=== PATIENT | male | born 1965 | race Caucasian/White ===

== ENCOUNTER 2018-11-20 08:20 | Emergency (ER) | payer SELFPAY ==
[2018-11-20] MEDS ORDERED: LORAZEPAM INJ 2 MG/1 ML VIAL IV PRN (08:38)
[2018-11-20 08:42] LABS: ABSOLUTE EOSINOPHILS # (AUTO) 0.1 10^3/uL (0.0-0.6); ABSOLUTE LYMPHOCYTES (AUTO) 1.4 10^3/uL (0.5-4.7); ABSOLUTE MONOCYTES (AUTO) 0.5 10^3/uL (0.1-1.4); ABSOLUTE NEUT (AUTO) 8.9 10^3/uL (1.7-8.2); BASOPHILS % (AUTO) 0.4 % (0-2); EOSINOPHILS % (AUTO) 1.4 % (0-6); HEMATOCRIT 42.9 % (37.9-51.0); HEMOGLOBIN 14.4 g/dL (13.5-17.0); LYMPHOCYTES % (AUTO) 12.4 % (13-45); MEAN CORPUSCULAR HEMOGLOBIN 30.3 pg (27.0-33.4); MEAN CORPUSCULAR HGB CONC 33.7 g/dL (32.0-36.0); MEAN CORPUSCULAR VOLUME 90 fl (80-97); MONOCYTES % (AUTO) 4.8 % (3-13); PLATELET COUNT 265 10^3/uL (150-450); RED BLOOD COUNT 4.77 10^6/uL (4.35-5.55); RED CELL DISTRIBUTION WIDTH 14.4 % (11.5-14.0); TOTAL CELLS COUNTED % (AUTO) 100 %
--- NOTE | 2018-11-20 08:45 | ER Document Report ---
ED General - General Chief Complaint: Probable Seizure Stated Complaint: POSSIBLE SEIZURE Time Seen by Provider: 11/20/18 08:24 Notes: [id number]-year-old male presents with new onset seizure. states they were laying in bed he was sleeping and he started having a generalized seizure. She tried rubbing his back rolled him on his side and called 911. She states there was a postictal state and he was completely out of it after he stopped seizing. She says it lasted a couple of minutes. Patient denies any alcohol abuse, Tylenol use, but does state he uses a lot of "Goody Powder ". Patient denies vision changes, headache, dizziness or lightheadedness, shortness of breath or chest pain, limb weakness or paresthesias, urinary symptoms. TRAVEL OUTSIDE OF THE [place] IN LAST 30 DAYS: No - Related Data Allergies/Adverse Reactions: No Known Allergies Allergy (Verified 11/20/18 08:44) Past Medical History - Social History Smoking Status: Never Smoker Family History: Reviewed & Not Pertinent - Immunizations Immunizations up to date: Yes Hx Diphtheria, Pertussis, Tetanus Vaccination: No Review of Systems - Review of Systems Constitutional: See HPI EENT: See HPI Cardiovascular: See HPI Respiratory: See HPI Gastrointestinal: See HPI Genitourinary: See HPI Male Genitourinary: No symptoms reported Musculoskeletal: No symptoms reported Skin: No symptoms reported Hematologic/Lymphatic: No symptoms reported Neurological/Psychological: See HPI Physical Exam - Vital signs Vitals: Pulse Ox 99 11/20/18 08:25 - Notes Notes: PHYSICAL EXAMINATION: Reviewed vital signs and charting by RN GENERAL: Alert, interacts well. No acute distress. HEAD: Normocephalic, atraumatic. EYES: Pupils equal, round, and reactive to light, 2mm. Extraocular movements intact. ENT: Oral mucosa moist, tongue midline. NECK: Full range of motion. Supple. Trachea midline. LUNGS: Clear to auscultation bilaterally, no wheezes, rales, or rhonchi. No respiratory distress. HEART: Regular rate and rhythm. No murmur ABDOMEN: soft, non-tender. Non-distended. Bowel sounds present in all 4 quadra nts. no McBurney's point tenderness, no Sage sign. EXTREMITIES: Moves all 4 extremities spontaneously. No edema, No cyanosis. Strength 5/5 all 4 extremities, 5/5 testing director strength, 5/5 strength dorsal and plantar flexion. No pronator drift. NEUROLOGICAL: Alert and oriented to self and place, did not know day of the week or year but knew month. Normal speech. No focal neuro deficits PSYCH: Normal affect, normal mood. SKIN: Warm, dry, normal turgor. No rashes or lesions noted. Course - Re-evaluation Re-evalutation: 11/20/18 08:42 53-year-old male with new onset seizure. CT head without contrast ordered, full set of labs ordered states patient takes a lot of Goody powder. Concern for salicylate poisoning. Patient states he has been having headaches for the last couple of years so I cannot rule out brain parenchymal lesion. 11/20/18 13:11 CT head completed negative for any brain lesion or intracranial bleed, all blood work was normal including salicylate and acetaminophen levels, negative EtOH. MRI brain with and without gadolinium complete and normal. I called , neurologist on-call at [facility] and and received recommendation that he should follow-up outpatient. He recommended no medication treatment but will need to get an EEG outpatient and seizure precautions must be administered. I explained all this to the patient and his . I will discharge the patient home with close follow-up with neurology tomorrow. - Vital Signs Vital signs: Temp Pulse Resp BP Pulse Ox 98.0 F 77 23 H 110/71 99 11/20/18 10:01 11/20/18 08:34 11/20/18 13:00 11/20/18 12:53 11/20/18 13:00 - Laboratory Result Diagrams: 11/20/18 08:23 11/20/18 08:23 Laboratory results interpreted by me: 11/20/18 11/20/18 11/20/18 08:23 08:23 08:23 WBC 11.0 H RDW 14.4 H Seg Neutrophils % 81.0 H Lymphocytes % 12.4 L Absolute Neutrophils 8.9 H Chloride 109 H Glucose 115 H Calcium 10.3 H ALT 12 L Urine Blood Salicylates < 1.0 L Acetaminophen < 10 L 11/20/18 08:53 WBC RDW Seg Neutrophils % Lymphocytes % Absolute Neutrophils Chloride Glucose Calcium ALT Urine Blood SMALL H Salicylates Acetaminophen Discharge - Discharge Clinical Impression: Seizure Condition: Good Disposition: HOME, SELF-CARE Instructions: New Seizure ([facility]) Additional Instructions: Today you had a seizure. It is very important that you do not engage in any activities that could result in severe injury should you have a seizure. Specifically, do not drive a vehicle, go into a body of water, take a bath, climb ladders, or operate any heavy machinery until you have been cleared by your neurologist. Please return to the ED immediately if you have multiple seizures close together, develop a severe headache, weakness, numbness, difficulty speaking, have a seizure in which you do not return to normal within 1 hour of the seizure, or have any other symptoms that are concerning to you.
--- NOTE | 2018-11-20 09:02 | RADIOLOGY REPORT (SQ) ---
EXAM DESCRIPTION: CT HEAD WITHOUT COMPLETED DATE/TIME: 11/20/2018 8:48 am REASON FOR STUDY: new onset seizure COMPARISON: None. TECHNIQUE: Axial images acquired through the brain without intravenous contrast. Images reviewed wi th bone, brain and subdural windows. Additional sagittal and coronal reconstructions were generated. Images stored on PACS. All CT scanners at this facility use dose modulation, iterative reconstruction, and/or weight based d osing when appropriate to reduce radiation dose to as low as reasonably achievable (ALARA). [facility]: Dose Right [facility]: CareDose [facility]: Dose Right [facility]: Teradose 4D [facility]: Smart Elixserve RADIATION DOSE: CT Rad equipment meets quality standard of care and radiation dose reduction techniq ues were employed. CTDIvol: 53.2 mGy. DLP: 964 mGy-cm. mGy. LIMITATIONS: None. FINDINGS: VENTRICLES: Normal size and contour. CEREBRUM: No masses. No hemorrhage. No midline shift. No evidence for acute infarction. Normal gra y/white matter differentiation. No areas of low density in the white matter. CEREBELLUM: No masses. No hemorrhage. No alteration of density. No evidence for acute infarction. EXTRAAXIAL SPACES: No fluid collections. No masses. ORBITS AND GLOBE: No intra- or extraconal masses. Normal contour of globe without masses. CALVARIUM: No fracture. PARANASAL SINUSES: No fluid or mucosal thickening. SOFT TISSUES: No mass or hematoma. OTHER: No other significant finding. IMPRESSION: NORMAL BRAIN CT WITHOUT CONTRAST. EVIDENCE OF ACUTE STROKE: NO. COMMENT: Quality ID # [id number]: Final reports with documentation of one or more dose reduction techniques (e.g., Automated exposure control, adjustment of the mA and/or kV according to patient size, use of iterative reconstruction technique) TECHNICAL DOCUMENTATION: JOB ID: [id number] [employer]- All Rights Reserved Reading location - IP/workstation name: [email or web address]
[2018-11-20 09:06] LABS: ALANINE AMINOTRANSFERASE 12 U/L (21-72); ALBUMIN 4.6 g/dL (3.5-5.0); ALKALINE PHOSPHATASE 50 U/L (38-126); ANION GAP 12 (5-19); ASPARTATE AMINO TRANSFERASE 21 U/L (17-59); BILIRUBIN,DIRECT 0.3 mg/dL (0.0-0.4); BILIRUBIN,TOTAL 0.5 mg/dL (0.2-1.3); BLOOD UREA NITROGEN 14 mg/dL (7-20); CALCIUM 10.3 mg/dL (8.4-10.2); CARBON DIOXIDE 22 mmol/L (22-30); CHLORIDE 109 mmol/L (98-107); GLUCOSE 115 mg/dL (75-110); POTASSIUM 4.8 mmol/L (3.6-5.0); SODIUM 142.8 mmol/L (137-145); TOTAL PROTEIN 7.6 g/dL (6.3-8.2)
[2018-11-20 09:08] LABS: ACETAMINOPHEN < 10 ug/mL (10-30); ALCOHOL < 10 mg/dL (NONE DETECTED); SALICYLATE < 1.0 mg/dL (2.0-20.0)
[2018-11-20 09:26] LABS: APPEARANCE,URINE SLIGHTLY-CLOUDY; BILIRUBIN,URINE NEGATIVE (NEGATIVE); COLOR,URINE YELLOW; GLUCOSE, URINE NEGATIVE (NEGATIVE); KETONES,URINE NEGATIVE (NEGATIVE); LEUKOCYTE ESTERASE,URINE NEGATIVE (NEGATIVE); NITRITE,URINE NEGATIVE (NEGATIVE); PROTEIN,URINE NEGATIVE (NEGATIVE); URINE SPECIFIC GRAVITY 1.014; UROBILINOGEN,URINE NEGATIVE mg/dL (<2.0)
[2018-11-20 09:37] LABS: PHOSPHORUS 2.5 mg/dL (2.5-4.5)
[2018-11-20 09:41] LABS: URINE AMPHETAMINES SCREEN NEGATIVE; URINE BARBITURATES SCREEN NEGATIVE; URINE BENZODIAZEPINES SCREEN NEGATIVE; URINE COCAINE SCREEN NEGATIVE; URINE MARIJUANA (THC) SCREEN UNCONFIRMED POSITIVE; URINE METHADONE SCREEN NEGATIVE; URINE PHENCYCLIDINE SCREEN NEGATIVE
[2018-11-20] MEDS ORDERED: ONDANSETRON HCL INJ/PF 4 MG/2 ML SDV IV ONE (10:08)
[2018-11-20] MEDS ORDERED: ACETAMINOPHEN 325 MG TABLET PO ONE (10:10)
--- NOTE | 2018-11-20 12:42 | RADIOLOGY REPORT (SQ) ---
EXAM DESCRIPTION: MRI HEAD COMBO COMPLETED DATE/TIME: 11/20/2018 12:28 pm REASON FOR STUDY: seizure COMPARISON: CT scan TECHNIQUE: Multiplanar imaging includes noncontrasted T1, T2, FLAIR, diffusion with ADC map and post gadolinium contrast T1 sequences. Images stored on PACS. CONTRAST TYPE AND DOSE: 10 mL Dotarem. RENAL FUNCTION: Not indicated. ACR Type II contrast agent associated with few, if any, unconfounded cases of NSF LIMITATIONS: Motion artifact. FINDINGS: ANATOMY: No anomalies. Normal vascular flow voids. Pituitary fossa normal. CSF SPACES: Normal in size and contour. No hemorrhage. CEREBRUM: Sulci and gyri normal in size and contour. Normal white matter signal on FLAIR imaging. No evidence of hemorrhage, mass, or extraaxial fluid collection. No abnormal enhancement post contrast. POSTERIOR FOSSA: No signal alteration. No hemorrhage. No edema, masses, or mass effect. Internal dede tory canals, cerebellopontine angles, mastoids normal. No enhancing lesions. No abnormal enhancement post contrast. DIFFUSION IMAGING: Negative for acute or subacute infarction. ORBITS: No masses. Globes normal. PARANASAL SINUSES: No fluid levels. Mucosa normal. OTHER: No other significant finding. IMPRESSION: NORMAL MRI OF THE BRAIN WITHOUT AND WITH INTRAVENOUS GADOLINIUM CONTRAST. EVIDENCE OF ACUTE STROKE: NO. TECHNICAL DOCUMENTATION: JOB ID: [id number] [employer]- All Rights Reserved Reading location - IP/workstation name: [email or web address]
[2018-11-20 13:31] VITALS: BP 117/76
--- NOTE | 2018-11-20 22:54 | EKG REPORT ---
SEVERITY:- NORMAL ECG - SINUS RHYTHM : Confirmed by: Zelda Villalobos 20-Nov-2018 22:53:32
== END 2018-11-20 13:59 | disposition home or self-care (01) ==
LOC: ER 08:20
DX: R56.9 Unspecified convulsions (principal); R51 Headache
CPT/HCPCS: 93005; 99285; 96374; 36415; 80307 ×4; 83735; 84100; 85025; 80053; 81001; 70553; 70450; 93010; A9576; J2405

== ENCOUNTER → 2019-01-19 | Outpatient (CLI) | payer OTHER ==
--- NOTE | 2019-01-19 12:37 | NEURO WORKBENCH EEG REPORT ---
EEG Report Patient:Lawrence Arndt ID:[id number] Referring Doctor: Moon Muro DOS: 01/19/2019 Medications: Keppra History This is a 53 year old right handed man with a history of daily headaches for years and first seizure in November 2018 during sleep. This EEG was requested for seizures. EEG Interpretation This EEG was recorded in the awake and drowsy states. The awake EEG is characterized by a well organized background with a well developed and reactive posterior dominant rhythm of 11Hz. Drowsiness is characterized by slowing of the background rhythms. Sleep was not obtained. Photic stimulation resulted in a good driving response. Hyperventilation resulted in mild generalized slowing of the background. There were no epileptiform abnormalities. The EKG showed a regular rhythm primarily in the 40s. EEG Impression This EEG is within normal limits for age in the awake and drowsy states only. A further EEG to obtain sleep may be considered if clinically indicated. There was a bradycardia noted that may require further investigation. INTERPRETING NEUROLOGIST: Meghan Peace MD, [facility]
== END ==
LOC: NEURO 08:00
PROVIDERS: ATTEND Internal Medicine
DX: G40.909 Epilepsy, unspecified, not intractable, without status epilepticus (principal)
CPT/HCPCS: 95819

== ENCOUNTER 2019-04-04 18:21 | Emergency (ER) | payer OTHER ==
[2019-04-04 18:28] VITALS: BP 124/70
--- NOTE | 2019-04-04 19:35 | ER Document Report ---
HPI - HPI Patient complains to provider of: bruise on head Time Seen by Provider: 04/04/19 19:27 Onset: Yesterday Onset/Duration: Sudden Quality of pain: No pain Pain Level: 0 Context: Patient presents to the emergency department with complaints of a bruise to the scalp that happened yesterday. Reports his noticed it and told her to come to the emergency department. Patient is not taking anticoagulants. Patient reports he did not fall he did not have a seizure. He is not sure how the bruise got there. He denies fever vomiting diarrhea. Patient drove himself here reports he feels fine. Associated Symptoms: None Exacerbated by: Denies Relieved by: Denies Similar symptoms previously: No Recently seen / treated by doctor: No - DERM Skin Color: Normal Past Medical History - General Information source: Patient - Social History Smoking Status: Unknown if Ever Smoked Cigarette use (# per day): No Frequency of alcohol use: None Drug Abuse: None Lives with: Family Family History: Reviewed & Not Pertinent Patient has suicidal ideation: No Patient has homicidal ideation: No Neurological Medical History: Reports: Hx Seizures - reportedly, unable to verify Renal/ Medical History: Denies: Hx Peritoneal Dialysis Surgical Hx: Negative - Immunizations Immunizations up to date: Yes Hx Diphtheria, Pertussis, Tetanus Vaccination: No Vertical Provider Document - CONSTITUTIONAL Agree With Documented VS: Yes Exam Limitations: No Limitations General Appearance: WD/WN, No Apparent Distress - INFECTION CONTROL TRAVEL OUTSIDE OF THE [place] IN LAST 30 DAYS: No - HEENT HEENT: Atraumatic, Normocephalic, PERRLA. negative: Conjuctival Injection - RESPIRATORY Respiratory: Breath Sounds Normal, No Respiratory Distress - CARDIOVASCULAR Cardiovascular: Regular Rate, Regular Rhythm - GI/ABDOMEN Gastrointestinal: Abdomen Soft, Abdomen Non-Tender - MUSCULOSKELETAL/EXTREMETIES Musculoskeletal/Extremeties: MAEW, FROM, Non-Tender - NEURO Level of Consciousness: Awake, Alert, Appropriate Motor/Sensory: No Motor Deficit - DERM Integumentary: Warm, Dry Adult Front & Back Diagram: 1 - Very faint ecchymosis to patient's top of his head. No pain no swelling no erythema no warmth Course - Re-evaluation Re-evalutation: 04/04/19 19:37 This 53-year-old male presents to the emergency department with a bruise on the top of his head. He does not know how it got there. He has not fallen. He is not taking anticoagulants. He reports his noticed that last night and told him he needs to come the emergency department. He reports his called Dr. Muro and was told to come to the emergency department patient reports he feels fine he is not vomiting no problems ambulating. Patient drove himself here. We discussed concerns with head injuries. Patient verbalized understanding. Will discharge patient home without any type of CT scan based on history patient has scribed. no Neuro deficits noted. Dictation of this chart was performed using voice recognition software; therefore, there may be some unintended grammatical errors. - Vital Signs Vital signs: Temp Pulse Resp BP Pulse Ox 97.3 F 73 18 124/70 100 04/04/19 18:26 04/04/19 18:26 04/04/19 18:26 04/04/19 18:26 04/04/19 18:26 Discharge - Discharge Clinical Impression: Scalp bruising Qualifiers: Encounter type: initial encounter Qualified Code(s): S00.03XA - Contusion of scalp, initial encounter Condition: Stable Disposition: HOME, SELF-CARE Additional Instructions: *You have been evaluated for bruise to your scalp *Monitor the bruise for increase in size and pain *Follow up with Dr. Muro this week *Return to ED for worsening condition, changes, needs Forms: Elevated Blood Pressure
== END 2019-04-04 19:39 | disposition home or self-care (01) ==
LOC: ER 18:21
DX: S00.03XA Contusion of scalp, initial encounter (principal); X58.XXXA Exposure to other specified factors, initial encounter
CPT/HCPCS: 99283